=== PATIENT | female | born 1940 | race Caucasian/White ===

== ENCOUNTER 2020-05-11 09:18 | Outpatient (CLI) | payer OTHER, MEDICARE, SELFPAY ==
--- NOTE | 2020-05-11 09:29 | MM_ITS ---
WS: [id number] BILATERAL DIGITAL SCREENING MAMMOGRAPHY WITH CAD CLINICAL INFORMATION: SCREENING HISTORY: Screening mammogram. No current complaints. COMPARISON: February 11, 2019 TECHNIQUE: Bilateral CC and MLO views. FINDINGS: The breasts are composed of heterogeneous fibroglandular density tissue, which can limit the detectio n of small underlying mass lesions. No suspicious mass, asymmetry, calcifications, or architectural d istortion. No evidence of malignancy. Punctate and lucent centered calcifications. MM/[id number] IMPRESSION: BI-RADS: 2-Benign FOLLOW UP: 1 Year Follow-up Recommend return to annual screening mammography.
== END 2020-05-11 09:19 | disposition home or self-care (01) ==
LOC: RADSHAW 09:27
PROVIDERS: PCP Family Medicine; Visit Provider Family Medicine
DX: Z12.31 Encounter for screening mammogram for malignant neoplasm of breast (principal)
CPT/HCPCS: 77067

== ENCOUNTER 2021-05-15 08:08 | Outpatient (CLI) | payer MEDICARE, SELFPAY ==
--- NOTE | 2021-05-15 08:13 | MM_ITS ---
WS: [id number] BILATERAL DIGITAL SCREENING MAMMOGRAPHY WITH CAD CLINICAL INFORMATION: SCREENING HISTORY: Screening mammogram. No current complaints. COMPARISON: May 11, 2020 TECHNIQUE: Bilateral CC and MLO views. FINDINGS: The breasts are composed of heterogeneous fibroglandular density tissue, which can limit the detectio n of small underlying mass lesions. No suspicious mass, asymmetry, calcifications, or architectural d istortion. No evidence of malignancy. Punctate and lucent centered calcifications. MM/[id number] IMPRESSION: BI-RADS: 2-Benign FOLLOW UP: 1 Year Follow-up Recommend return to annual screening mammography.
== END 2021-05-15 08:09 | disposition home or self-care (01) ==
LOC: RADSHAW 08:11
PROVIDERS: PCP Family Medicine; Visit Provider Family Medicine
DX: Z12.31 Encounter for screening mammogram for malignant neoplasm of breast (principal)
CPT/HCPCS: 77067

== ENCOUNTER 2022-05-21 11:47 | Outpatient (CLI) | payer MEDICARE, SELFPAY ==
--- NOTE | 2022-05-21 11:55 | MM_ITS ---
WS: [id number] BILATERAL 3D TOMOSYNTHESIS DIGITAL SCREENING MAMMOGRAPHY WITH CAD CLINICAL INFORMATION: SCREENING HISTORY: Screening mammogram. No current complaints. COMPARISON: May 15, 2021 TECHNIQUE: Bilateral CC and MLO views. FINDINGS: Scattered fibroglandular densities bilaterally. Punctate and lucent centered calcifications. Vascular calcification. No suspicious focal mass, asymmetry, calcifications, or architectural distortion. No evidence of malignancy. MM/[id number] IMPRESSION: BI-RADS: 2-Benign FOLLOW UP: 1 Year Follow-up Recommend return to annual screening mammography.
== END 2022-05-21 11:48 | disposition home or self-care (01) ==
LOC: RAD 11:48
PROVIDERS: PCP Family Medicine; Visit Provider Family Medicine
DX: Z12.31 Encounter for screening mammogram for malignant neoplasm of breast (principal)
CPT/HCPCS: 77063; 77067

== ENCOUNTER 2023-05-24 09:32 | Outpatient (CLI) | payer MEDICARE, SELFPAY ==
--- NOTE | 2023-05-24 09:47 | MM_ITS ---
WS: [id number] VIEWS: MLO and CC views both breasts. 3D digital tomosynthesis is also included in this exam. Comparison made with prior exam of 01/30/2017, 02/03/2018, 02/11/2019, 05/11/2020, 05/15/2021, and 2.. Findings: There was no sign of mass, architectural distortion or suspicious calcification in either breast. Th e breasts are heterogeneously dense which may obscure small masses. MM/[id number] Impression: BI-RADS: 2-Benign finding. FOLLOW-UP: 1 Year Follow-up This mammogram was also analyzed by the Computer Aided Detection System [employer] Data Warehouse Analyst.
== END 2023-05-24 09:33 | disposition home or self-care (01) ==
PROVIDERS: PCP Family Medicine; Visit Provider Family Medicine
DX: Z12.31 Encounter for screening mammogram for malignant neoplasm of breast (principal)
CPT/HCPCS: 77063; 77067

== ENCOUNTER 2024-02-05 12:44 | Outpatient (CLI) | payer MEDICARE, SELFPAY ==
--- NOTE | 2024-02-05 12:56 | XR_ITS ---
WS: [id number] SCREENING DEXA SCAN [employer] CLINICAL INFORMATION: POSTMENOPAUSAL COMPARISON: 2014 FINDINGS: The L1-L4 bone mineral density measures 1.326 g/cm2. This corresponds to a T score score of 1.2 and Z score of 2.8. Left femoral neck bone mineral density measures 0.778 g/cm2. This corresponds to a T score of -1.8 an d Z score of 0.0. Right femoral neck bone mineral density measures 0.784 g/cm2. This corresponds to a T score -1.8of an d Z score of 0.1. Mean femoral neck bone mineral density measures 0.781 g/cm2. This corresponds to a T score of -1.8 an d Z score of 0.1. IMPRESSION: Normal bone mineralization lumbar spine. Osteopenia femoral necks. Patient's FRAX calculated 10 year probability for major osteoporotic fracture is 26.5% and osteoporot ic hip fracture is 8.6%. Bone mineral density lumbar spine increased 5.1% bone mineral density femoral necks decreased -6.7%
== END 2024-02-05 12:45 | disposition home or self-care (01) ==
LOC: RAD 12:45
PROVIDERS: PCP Family Medicine; Visit Provider Physician Assistant
DX: Z78.0 Asymptomatic menopausal state (principal); M85.88 Other specified disorders of bone density and structure, other site
CPT/HCPCS: 77080

== ENCOUNTER 2024-05-25 09:18 | Outpatient (CLI) | payer MEDICARE, SELFPAY ==
--- NOTE | 2024-05-25 09:27 | MM_ITS ---
WS: [id number] BILATERAL SCREENING DIGITAL TOMOSYNTHESIS MAMMOGRAM WITH CAD HISTORY: SCREENING COMPARISON: 05/24/2023, 05/21/2022 and 05/15/2021 Bilateral CC and MLO views with tomosynthesis and synthetic mammography submitted. Computer aided det ection analyzed. Breast composition: There are scattered areas of fibroglandular density. No suspicious masses, microc alcifications or architectural distortion. Numerous benign calcifications in each breast. MM/[id number] IMPRESSION: BI-RADS: 2-Benign FOLLOW UP: 1 Year Follow-up
== END 2024-05-25 09:19 | disposition home or self-care (01) ==
LOC: RAD 09:19
PROVIDERS: PCP Family Medicine; Visit Provider Family Medicine
DX: Z12.31 Encounter for screening mammogram for malignant neoplasm of breast (principal)
CPT/HCPCS: 77063; 77067

== ENCOUNTER 2024-05-28 03:41 | Emergency (ER) | payer MEDICARE, SELFPAY ==
[2024-05-28 03:49] VITALS: BP 174/96; PULSE 73; RESP 17; O2SAT 95; BMI 24.9
--- NOTE | 2024-05-28 04:02 | ED_ITS ---
Documented by User: Ollie Hendrix DO 05/28/24 04:04 HPI - Extremity Problem 2 General: Chief complaint: Extremity Problem,Nontraumatic Stated complaint: Hip- Knee pain Time Seen by Provider: 05/28/24 03:42 History of Present Illness: Patient presents to the ER with complaints of left lateral thigh pain from her hip down to her knee. Patient states this has been going on for several days she even seen someone over at [facility] 2 days ago and had a ultrasound done which showed no blood clots and they started her on prednisone at 20 mg 2 pills daily. Patient is only taken 1 dose yesterday noticed did not help. Hip pain is getting worse. Patient has never had this pain before. Patient denies any trauma or overuse. It is only in the left lateral thigh area from the knee to the hip and nowhere else. Review of Systems 2 General: Reports: 10 or more systems reviewed and unremarkable except in HPI and below PFSH ED 2 PFSH: Social History Smoking and tobacco/nicotine status: never used tobacco/nicotine Physical Exam 2 Const: COMMON NORMALS: no acute distress, average body habitus, patient oriented x3, no limitations, healthy appearing, alert and well nourished HENMT: COMMON NORMALS: normocephalic, atraumatic, hearing grossly normal bilaterally, external ears normal, Normal external nose present and moist oral mucous membranes HEAD & SCALP: normocephalic and atraumatic NOSE: Normal external nose present EXTERNAL EAR: Yes external ears normal Neck/C-Spine: COMMON NORMALS: no JVD Chest: COMMONS NORMALS: normal inspection of the chest and normal palpation of entire chest wall Resp: COMMON NORMALS: normal respiratory effort, No retractions, No use of accessory muscles and clear to auscultation bilaterally AUSCULTATION: clear to auscultation bilaterally Cardio: COMMON NORMALS: no JVD, regular rate, regular rhythm, S1 normal heart sound present, S2 normal heart sound present, No gallops present (Cardio), No clicks present (Cardio) and No murmurs present (Cardio) RATE: regular rate RHYTHM: regular rhythm HEART SOUNDS: S1 normal heart sound present and S2 normal heart sound present GI: COMMON NORMALS: Normal to inspection, nondistended, normoactive bowel sounds present, Soft to palpation, non-tender, No hepatosplenomegaly present and no masses PALPATION: Yes Soft to palpation and Yes No hepatosplenomegaly present Extremity: NARRATIVE EXTREMITY EXAM: Tenderness with palpation left lower extremity, lateral thigh from greater trochanter to knee. Tender to palpate, hip and knee have full range of motion. No obvious spasticity. Neuro: COMMON NORMALS: patient oriented x3 SENSORIUM/ORIENTATION: Yes alert Course 2 Vital Signs: Vital signs: Vital Signs Pulse Rate 64 05/28/24 08:00 Respiratory Rate 18 05/28/24 07:24 Blood Pressure 162/69 05/28/24 08:00 Pulse Oximetry 95 05/28/24 08:00 Oxygen Delivery Me thod Room Air 05/28/24 08:00 MDM - Extremity (Nontraumatic) Differential Diagnosis Unlikely herpes zoster, gout, cellulitis, superficial thrombophlebitis, deep venous thrombosis of upper extremity, lower extremity edema or deep vein thrombosis of lower extremity Medical Records I reviewed the patient's medical records. Lab Data I reviewed the patient's lab results. 05/28/24 06:26 05/28/24 06:26 Laboratory Results WBC 10.23 10^3/uL (3.29-11.43) 05/28/24 06:26 RBC 4.00 10^6/uL (3.85-5.65) 05/28/24 06:26 Hgb 11.90 g/dL (11.27-16.99) 05/28/24 06:26 Hct 35.7 % (36-47) L 05/28/24 06:26 MCV 89.3 fl (85-98) 05/28/24 06:26 MCH 29.8 pg (27-33) 05/28/24 06:26 MCHC 33.3 g/dL (30-55) 05/28/24 06:26 RDW 13.1 % (12.1-15.1) 05/28/24 06:26 Plt Count 317 10^3/cmm (157-399) 05/28/24 06:26 MPV 9.7 fL (7.4-10.4) 05/28/24 06:26 Neut % (Auto) 47.9 % 05/28/24 06:26 Lymph % (Auto) 43.7 % 05/28/24 06:26 Estill % (Auto) 5.9 % 05/28/24 06:26 Eos % (Auto) 2.2 % 05/28/24 06:26 Baso % (Auto) 0.0 % 05/28/24 06:26 Neut # (Auto) 4.91 10^3/uL (1.8-7.7) 05/28/24 06:26 Lymph # (Auto) 4.5 10^3/uL (0.8-4.8) 05/28/24 06:26 Estill # (Auto) 0.6 10^3/uL (0.2-0.9) 05/28/24 06:26 Eos # (Auto) 0.2 10^3/uL (0.0-0.8) 05/28/24 06:26 Baso # (Auto) 0.0 10^3/uL (0.0-0.1) 05/28/24 06:26 Nucleated RBC % (auto) 0 % 05/28/24 06:26 Nucleated RBCs # 0.0 /100WBC 05/28/24 06:26 Sodium 141 mmol/L (136-145) 05/28/24 06:26 Potassium 3.9 mmol/L (3.5-5.1) 05/28/24 06:26 Chloride 103 mmol/L (98-107) 05/28/24 06:26 Carbon Dioxide 28 mmol/L (22-29) 05/28/24 06:26 Anion Gap 13.9 (5-19) 05/28/24 06:26 BUN 23 mg/dL (8-23) 05/28/24 06:26 Creatinine 1.3 mg/dL (0.5-0.9) H 05/28/24 06:26 GFR Calculation Not Reportable 05/28/24 06:26 Glucose 106 mg/dL (65-115) 05/28/24 06:26 Calculated Osmolality 296 mOsm/kg (285-295) H 05/28/24 06:26 Calcium 9.6 mg/dL (8.5-10.5) 05/28/24 06:26 Magnesium 2.0 mg/dL (1.7-2.3) 05/28/24 06:26 Total Bilirubin 0.3 mg/dL (0.15-1.2) 05/28/24 06:26 AST 16 U/L (0-32) 05/28/24 06:26 ALT 13 U/L (0-33) 05/28/24 06:26 Alkaline Phosphatase 72 U/L (35-105) 05/28/24 06:26 Total Protein 6.6 g/dL (6.6-8.7) 05/28/24 06:26 Albumin 4.0 g/dL (3.5-5.2) 05/28/24 06:26 Globulin 2.6 g/dL (1.3-4.6) 05/28/24 06:26 No radiology studies performed this visit Discharge Plan Discharge Patient Disposition: Home 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 3 times daily x3 days, 1 p.o. twice daily x2 days, 1 p.o. daily x2 days Lyrica 75 mg capsule 75 mg PO BID Qty: 42 0RF No Action lisinopril-hydrochlorothiazide 10-12.5 mg tablet 1 tab PO DAILY aspirin [Adult Low Dose Aspirin] 81 mg tablet,delayed release (DR/EC) 81 mg PO DAILY atorvastatin 20 mg tablet 20 mg PO DAILY omeprazole 40 mg capsule,delayed release(DR/EC) 40 mg PO DAILY Vero 180 mg Tablet 180 mg PO DAILY Vitamin D3 125 mcg (5,000 unit) Tablet 125 mcg PO DAILY Calcium Magnesium 500 mg calcium- 250 mg Tablet 1 tab PO DAILY Discharge Orders: Discharge ED (Routine); Ordered 05/28/24 Ordered By: Arcadio Prabhakar Referrals: Farzana Collins MD [Primary Care Provider] - Discharge Diet: Usual diet Discharge Activity: Increase activity as tolerated Patient Instructions: Opioid Safety, Pain Management Activity Restrictions/Additional Instructions: Thank you for choosing [facility] for your healthcare needs today. It is very important that you follow up as instructed or that you return to the Emergency Department should you have concerns or if your condition changes or worsens in any way. You were seen today for pain in your left lateral thigh. X-rays your hip and knee were normal. Based on your presentation and exam suspect the cause is irritation of the lateral femoral cutaneous nerve. Recommend you start the prednisone taper tomorrow you were given an IV dose of prednisone in the emergency room. You can start the Lyrica today. Follow-up with your primary care doctor within the next week. Sign Out Sign Out Data: Patient Sign Out occurred on 05/28/24 at 06:57. Patient's care was discussed, and care was transferred from Ollie Hendrix DO to Arcadio Prabhakar DO. Coding Level of Care Code ED Workers Compensation Administrator for Chg Fwd Documented by User: Arcadio Prabhakar DO 05/28/24 08:16 HPI - Extremity Problem 2 General: Chief complaint: Extremity Problem,Nontraumatic Stated complaint: Hip- Knee pain Time Seen by Provider: 05/28/24 03:42 [facility] ED 2 PFSH: Social History Smoking and tobacco/nicotine status: never used tobacco/nicotine Course 2 Vital Signs: Vital signs: Vital Signs Pulse Rate 64 05/28/24 08:00 Respiratory Rate 18 05/28/24 07:24 Blood Pressure 162/69 05/28/24 08:00 Pulse Oximetry 95 05/28/24 08:00 Oxygen Delivery Me thod Room Air 05/28/24 08:00 MDM - Extremity (Nontraumatic) Medical Decision Making Care assumed at change of shift. Pain did improve with further medications also given steroid. Reviewing history and talking with the patient and examining her. She has a lateral femoral cutaneous nerve syndrome. X-rays were negative there is no trauma no pain with palpation over the greater trochanter. She refers pain in a pattern consistent with a lateral femoral cutaneous neuropathy. Will continue a steroid taper start Lyrica can continue to use anti- inflammatories follow-up with primary care. Lab Data 05/28/24 06:26 05/28/24 06:26 Laboratory Results WBC 10.23 10^3/uL (3.29-11.43) 05/28/24 06:26 RBC 4.00 10^6/uL (3.85-5.65) 05/28/24 06:26 Hgb 11.90 g/dL (11.27-16.99) 05/28/24 06:26 Hct 35.7 % (36-47) L 05/28/24 06:26 MCV 89.3 fl (85-98) 05/28/24 06:26 MCH 29.8 pg (27-33) 05/28/24 06:26 MCHC 33.3 g/dL (30-55) 05/28/24 06:26 RDW 13.1 % (12.1-15.1) 05/28/24 06:26 Plt Count 317 10^3/cmm (157-399) 05/28/24 06:26 MPV 9.7 fL (7.4-10.4) 05/28/24 06:26 Neut % (Auto) 47.9 % 05/28/24 06:26 Lymph % (Auto) 43.7 % 05/28/24 06:26 Estill % (Auto) 5.9 % 05/28/24 06:26 Eos % (Auto) 2.2 % 05/28/24 06:26 Baso % (Auto) 0.0 % 05/28/24 06:26 Neut # (Auto) 4.91 10^3/uL (1.8-7.7) 05/28/24 06:26 Lymph # (Auto) 4.5 10^3/uL (0.8-4.8) 05/28/24 06:26 Estill # (Auto) 0.6 10^3/uL (0.2-0.9) 05/28/24 06:26 Eos # (Auto) 0.2 10^3/uL (0.0-0.8) 05/28/24 06:26 Baso # (Auto) 0.0 10^3/uL (0.0-0.1) 05/28/24 06:26 Nucleated RBC % (auto) 0 % 05/28/24 06:26 Nucleated RBCs # 0.0 /100WBC 05/28/24 06:26 Sodium 141 mmol/L (136-145) 05/28/24 06:26 Potassium 3.9 mmol/L (3.5-5.1) 05/28/24 06:26 Chloride 103 mmol/L (98-107) 05/28/24 06:26 Carbon Dioxide 28 mmol/L (22-29) 05/28/24 06:26 Anion Gap 13.9 (5-19) 05/28/24 06:26 BUN 23 mg/dL (8-23) 05/28/24 06:26 Creatinine 1.3 mg/dL (0.5-0.9) H 05/28/24 06:26 GFR Calculation Not Reportable 05/28/24 06:26 Glucose 106 mg/dL (65-115) 05/28/24 06:26 Calculated Osmolality 296 mOsm/kg (285-295) H 05/28/24 06:26 Calcium 9.6 mg/dL (8.5-10.5) 05/28/24 06:26 Magnesium 2.0 mg/dL (1.7-2.3) 05/28/24 06:26 Total Bilirubin 0.3 mg/dL (0.15-1.2) 05/28/24 06:26 AST 16 U/L (0-32) 05/28/24 06:26 ALT 13 U/L (0-33) 05/28/24 06:26 Alkaline Phosphatase 72 U/L (35-105) 05/28/24 06:26 Total Protein 6.6 g/dL (6.6-8.7) 05/28/24 06:26 Albumin 4.0 g/dL (3.5-5.2) 05/28/24 06:26 Globulin 2.6 g/dL (1.3-4.6) 05/28/24 06:26 Discharge Plan Discharge Patient Disposition: Home 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 3 times daily x3 days, 1 p.o. twice daily x2 days, 1 p.o. daily x2 days Lyrica 75 mg capsule 75 mg PO BID Qty: 42 0RF No Action lisinopril-hydrochlorothiazide 10-12.5 mg tablet 1 tab PO DAILY aspirin [Adult Low Dose Aspirin] 81 mg tablet,delayed release (DR/EC) 81 mg PO DAILY atorvastatin 20 mg tablet 20 mg PO DAILY omeprazole 40 mg capsule,delayed release(DR/EC) 40 mg PO DAILY Vero 180 mg Tablet 180 mg PO DAILY Vitamin D3 125 mcg (5,000 unit) Tablet 125 mcg PO DAILY Calcium Magnesium 500 mg calcium- 250 mg Tablet 1 tab PO DAILY Discharge Orders: Discharge ED (Routine); Ordered 05/28/24 Ordered By: Arcadio Prabhakar Referrals: Farzana Collins MD [Primary Care Provider] - Discharge Diet: Usual diet Discharge Activity: Increase activity as tolerated Patient Instructions: Opioid Safety, Pain Management Activity Restrictions/Additional Instructions: Thank you for choosing [facility] for your healthcare needs today. It is very important that you follow up as instructed or that you return to the Emergency Department should you have concerns or if your condition changes or worsens in any way. You were seen today for pain in your left lateral thigh. X-rays your hip and knee were normal. Based on your presentation and exam suspect the cause is irritation of the lateral femoral cutaneous nerve. Recommend you start the prednisone taper tomorrow you were given an IV dose of prednisone in the emergency room. You can start the Lyrica today. Follow-up with your primary care doctor within the next week. Sign Out Sign Out Data: Patient Sign Out occurred on 05/28/24 at 06:57. Patient's care was discussed, and care was transferred from Ollie Hendrix DO to Arcadio Prabhakar DO. Coding Level of Care Code ED Workers Compensation Administrator for Sarah Cacerse
[2024-05-28] MEDS: orphenadrine 30 mg/mL Inj 2 mL 60 MG IM (04:11)
[2024-05-28] MEDS: ketorolac 60 mg/2 mL INJ IM (04:12)
[2024-05-28] MEDS: morphine 4 mg/mL SDV 1 mL IM (05:18)
[2024-05-28 06:33] LABS: Eosinophils # 0.2 10^3/uL (0.0-0.8); Eosinophils % 2.2 %; Hematocrit 35.7 % (36-47); Lymphocytes # 4.5 10^3/uL (0.8-4.8); Lymphocytes % 43.7 %; Mean Corpuscular HGB Conc 33.3 g/dL (30-55); Mean Corpuscular Hemoglobin 29.8 pg (27-33); Mean Corpuscular Volume 89.3 fl (85-98); Mean Platelet Volume 9.7 fL (7.4-10.4); Monocytes # 0.6 10^3/uL (0.2-0.9); Monocytes % 5.9 %; Neutrophils # 4.91 10^3/uL (1.8-7.7); Neutrophils % 47.9 %; Nucleated Red Blood Cells % 0 %; Platelet Count 317 10^3/cmm (157-399); Red Cell Distribution Width 13.1 % (12.1-15.1); White Blood Count 10.23 10^3/uL (3.29-11.43)
[2024-05-28 06:50] LABS: Alanine Aminotransferase 13 U/L (0-33); Alkaline Phosphatase 72 U/L (35-105); Anion Gap 13.9 (5-19); Aspartate Amino Transferase 16 U/L (0-32); Blood Urea Nitrogen 23 mg/dL (8-23); Calcium 9.6 mg/dL (8.5-10.5); Carbon Dioxide 28 mmol/L (22-29); Chloride 103 mmol/L (98-107); Creatinine Clr Calc Pharmacy 35.2595; Globulin 2.6 g/dL (1.3-4.6); Glucose 106 mg/dL (65-115); Osmolality Calculated 296 mOsm/kg (285-295); Potassium 3.9 mmol/L (3.5-5.1); Sodium 141 mmol/L (136-145); Total Bilirubin 0.3 mg/dL (0.15-1.2); Total Protein 6.6 g/dL (6.6-8.7)
--- NOTE | 2024-05-28 07:09 | XRR_ITS ---
PROCEDURE INFORMATION: Exam: XR Left Knee Exam date and time: 05/28/2024 7:36 AM Age: 83 years old Clinical indication: Hip and knee and lower leg; Left; Patient HX: Lt lower ext pain; No known injury TECHNIQUE: Imaging protocol: Radiologic exam of the left knee. Views: 3 views. COMPARISON: US ROR venous duplex LE LT 05/26/2024 11:56 AM FINDINGS: Bones/joints: There is minimal joint space narrowing involving the medial and patellofemoral compartments. There are tiny medial, patellofemoral and tibial spine osteophytes. Soft tissues: Normal. XR/XR knee LT 3V* [id number] IMPRESSION: 1. Mild osteoarthritis.
--- NOTE | 2024-05-28 07:09 | XRR_ITS ---
PROCEDURE INFORMATION: Exam: XR Left Hip Exam date and time: 05/28/2024 7:36 AM Age: 83 years old Clinical indication: Hip pain; Left hip; Patient HX: Lt lower ext pain; No known injury TECHNIQUE: Imaging protocol: Radiologic exam of the left hip. Views: 2 or 3 views hip with pelvis when performed. COMPARISON: No relevant prior studies available. FINDINGS: Bones/joints: Unremarkable. No acute fracture. Soft tissues: Unremarkable. XR/XR hip LT 2-3V wo/w pel* [id number] IMPRESSION: No acute findings.
[2024-05-28 07:24] VITALS: RESP 18
[2024-05-28] MEDS: morphine 4 mg/mL SDV 1 mL IVP (07:24)
[2024-05-28] MEDS: dexamethasone 10 mg/mL INJ IV (07:24)
[2024-05-28 08:00] VITALS: BP 162/69; PULSE 64; O2SAT 95
[2024-05-28 08:22] VITALS: BP 165/77; PULSE 60; O2SAT 98
== END 2024-05-28 08:27 | disposition home or self-care (01) ==
PROVIDERS: Emergency Medicine; Emergency Provider Family Medicine; PCP Family Medicine
DX: G57.22 Lesion of femoral nerve, left lower limb (principal); Z79.82 Long term (current) use of aspirin
CPT/HCPCS: 36415; 73502; 73562; 80053; 83735; 85025; 96372; 96374; 96375; 99284; J1100; J1885; J2270; J2360

== ENCOUNTER → 2024-06-22 11:00 | Outpatient (BNVA) | payer MEDICARE, SELFPAY | PROVIDERS: PCP Family Medicine; Referring Provider Family Medicine; Visit Provider Nurse Practitioner | DX: M70.62 Trochanteric bursitis, left hip | CPT/HCPCS: 20610; 99204; J1100; J2795; J3301 ==

== ENCOUNTER → 2024-11-01 11:35 | Outpatient (BNVA) | payer MEDICARE, SELFPAY | PROVIDERS: PCP Family Medicine; Visit Provider Emergency Medicine | DX: R05.9 Cough, unspecified (principal) | CPT/HCPCS: 87400; 87426 ==

== ENCOUNTER 2025-05-26 08:14 | Outpatient (CLI) | payer MEDICARE, SELFPAY ==
--- NOTE | 2025-05-26 08:20 | MM_ITS ---
WS: [id number] BILATERAL SCREENING DIGITAL TOMOSYNTHESIS MAMMOGRAM WITH CAD HISTORY: SCREENING COMPARISON: 05/25/2024, 05/24/2023 and 05/21/2022 Bilateral CC and MLO views with tomosynthesis and synthetic mammography submitted. Computer aided detection analyzed. Breast composition: The breasts are heterogeneously dense, which may obscure small masses. No suspicious masses, microcalcifications or architectural distortion. Scattered benign calcifications and asymmetries within each breast are stable. MM/MM scr tomosynthesis [id number] IMPRESSION: BI-RADS: 2 - Benign FOLLOW UP: 1 Year Follow-up
== END 2025-05-26 08:15 | disposition home or self-care (01) ==
LOC: RAD 08:16
PROVIDERS: PCP Family Medicine; Visit Provider Family Medicine
DX: Z12.31 Encounter for screening mammogram for malignant neoplasm of breast (principal); R92.333 Mammographic heterogeneous density, bilateral breasts; R92.1 Mammographic calcification found on diagnostic imaging of breast; N64.89 Other specified disorders of breast
CPT/HCPCS: 77063; 77067

== ENCOUNTER → 2025-10-08 09:51 | Outpatient (BNVA) | payer MEDICARE, SELFPAY | PROVIDERS: PCP Family Medicine; Visit Provider Nurse Practitioner | DX: M19.012 Primary osteoarthritis, left shoulder (principal); M67.912 Unspecified disorder of synovium and tendon, left shoulder; M54.12 Radiculopathy, cervical region; M62.830 Muscle spasm of back | CPT/HCPCS: 73030; 99214 ==

== ENCOUNTER → 2025-10-28 13:19 | Outpatient (BNVA) | payer MEDICARE, SELFPAY | PROVIDERS: PCP Family Medicine; Visit Provider Orthopaedic Surgery | DX: M54.12 Radiculopathy, cervical region (principal); M48.02 Spinal stenosis, cervical region | CPT/HCPCS: 72040; 99203; 99213 ==

== ENCOUNTER 2025-11-05 13:56 | Outpatient (CLI) | payer MEDICARE, SELFPAY ==
--- NOTE | 2025-11-05 14:30 | MR_ITS ---
WS: [id number] MRI CERVICAL SPINE NONCONTRAST TECHNIQUE: Sagittal T1, T2 and STIR imaging. Axial T2, gradient, and fiesta imaging. CLINICAL INFORMATION: Neck pain COMPARISON: None. FINDINGS: Slight exaggeration of the normal cervical lordosis. Moderate spondylitic changes. Cord signal is normal. C2-C3: Mild LEFT bony foraminal narrowing. Moderate RIGHT facet arthropathy. C3-C4: Moderate facet arthropathy. Mild bilateral bony foraminal narrowing. C4-C5: Mild disc bulging. Shallow central protrusion. Mild central canal stenosis. Moderate facet arthropathy. Mild LEFT greater than RIGHT foraminal narrowing. C5-C6: Central disc osteophyte protrusion. Slight indentation of the cervical cord. Mild central canal stenosis. Moderate facet arthropathy. Moderate bilateral bony foraminal narrowing. C6-C7: Shallow central protrusion. Slight indentation of the cervical cord. Mild central canal stenosis. Moderate LEFT bony foraminal narrowing. Mild RIGHT foraminal narrowing. Moderate facet arthropathy. C7-T1: Mild disc bulging. Mild bilateral foraminal narrowing. Visualized brain stem structures: Normal. Prevertebral soft tissues: Normal. Small T2 hyperintense thyroid nodules. MR/MR cervical spin wo con* [id number] IMPRESSION: 1. Moderate spondylitic changes. Cord signal is normal. 2. Shallow central protrusions C4-C5 C5-C6 and C6-C7 with slight indentation c ervical cord with mild central canal stenosis. 3. Moderate facet arthropathy C3-C4 C4-C5 C5-C6 and C6-C7. 4. Moderate bilateral bony foraminal narrowing C5-C6 and moderate LEFT C6-7
== END 2025-11-05 13:57 | disposition home or self-care (01) ==
LOC: RAD 13:59
PROVIDERS: PCP Family Medicine; Visit Provider Orthopaedic Surgery
DX: M48.02 Spinal stenosis, cervical region (principal); M25.78 Osteophyte, vertebrae; M50.21 Other cervical disc displacement, high cervical region; M50.222 Other cervical disc displacement at C5-C6 level; M50.223 Other cervical disc displacement at C6-C7 level; M50.33 Other cervical disc degeneration, cervicothoracic region
CPT/HCPCS: 72141

== ENCOUNTER → 2025-11-09 13:21 | Outpatient (BNVA) | payer MEDICARE, SELFPAY | PROVIDERS: PCP Family Medicine; Visit Provider Orthopaedic Surgery | DX: M48.02 Spinal stenosis, cervical region (principal); M54.12 Radiculopathy, cervical region | CPT/HCPCS: 99214 ==

== ENCOUNTER → 2025-11-23 09:39 | Outpatient (BNVA) | payer MEDICARE, SELFPAY | PROVIDERS: PCP Family Medicine; Referring Provider Orthopaedic Surgery; Visit Provider Nurse Practitioner Family | DX: M54.12 Radiculopathy, cervical region (principal); M79.602 Pain in left arm | CPT/HCPCS: 99204; 99214 ==